=== PATIENT | male | born 1985 | race African-American/Black ===

== ENCOUNTER 2017-03-29 20:25 | Emergency (ER) | payer SELFPAY ==
[~2017-03-29] VITALS: Ht 172.7 cm; Wt 78.5 kg
[~2017-03-29 20:25] MED LIST: AUG875 PO; NAPR-260 PO
[2017-03-29 20:29] VITALS: Ht 172.7 cm; Wt 78.5 kg
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
[2017-03-29] MEDS ORDERED: IBUPROFEN 200 MG TAB PO ONE (22:30)
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
[2017-03-29] MEDS ORDERED: IBUP-1542 PO (22:41)
== END 2017-03-29 22:57 | disposition home or self-care (01) ==
LOC: FTE 20:25
DX: S49.92XA Unspecified injury of left shoulder and upper arm, initial encounter (principal); V49.40XA Driver injured in collision with unspecified motor vehicles in traffic accident, initial encounter
CPT/HCPCS: 73030